=== PATIENT | female | born 1955 | race Caucasian/White ===

== ENCOUNTER 2017-07-10 13:02 | Outpatient (CLI) | payer BC ==
--- NOTE | 2017-07-10 13:31 | MMO ---
BILATERAL SCREENING MAMMOGRAMS: Date: 07/10/17 HISTORY: 61-year-old female patient presenting for screening mammography. Patient has history of sister with b reast cancer in her 30s. This patient's mammogram was interpreted with the assistance of computer-aided detection. COMPARISON: 06/12/14. FINDINGS: The breast parenchyma is almost entirely composed of fat. No dominant mass or suspicious grouping of microcalcifications are seen in either breast. IMPRESSION: BIRADS 1: Negative Routine annual mammographic screening is recommended. POS: [facility]
--- NOTE | 2017-07-10 15:35 | MRI ---
MRI LUMBAR SPINE NONCONTRAST: Date: 07/10/17 HISTORY: Low back pain. Right leg radiculopathy. FINDINGS: The conus medullaris has a normal appearance. Vertebral body heights are maintained. There is desicca tion of the lowest three intervertebral discs. T12-L1, L1-2, L2-3, L3-4: Mild osteophytosis. The central canal and neural foramina are patent. L4-5: There is disc space narrowing and minimal degenerative spondylolisthesis. Very mild posterior disc bu lge is present. Circumferential degenerative changes result in mild stenosis of the central canal and right neural foramen. L5-S1: Osteophytosis of the facets. Moderate left foraminal stenosis. Central canal and neural foramina sobeida in patent. IMPRESSION: Degenerative changes of the lower lumbar spine, with moderate stenosis of the left neural foramen at the lumbosacral junction. Clinical correlation regarding the left L5 dermatome is required. POS: [facility]
== END 2017-07-10 13:03 | disposition home or self-care (01) ==
LOC: SCSMAMMO 13:02
PROVIDERS: ATTEND Family Medicine
DX: Z12.31 Encounter for screening mammogram for malignant neoplasm of breast (principal); M47.26 Other spondylosis with radiculopathy, lumbar region; M99.83 Other biomechanical lesions of lumbar region; Z80.3 Family history of malignant neoplasm of breast
CPT/HCPCS: 72148; 77067